=== PATIENT | male | born 1955 | race African-American/Black ===

== ENCOUNTER 2017-02-05 17:59 | Emergency (ER) | payer MEDICAID ==
[~2017-02-05] VITALS: Ht 177.8 cm; Wt 75.0 kg
[2017-02-05] MEDS ORDERED: SODIUM CHLORIDE 0.9% 1,000 ML IV ONE (18:08)
[2017-02-05] MEDS ORDERED: KETOROLAC 30MG/ML VIAL IV STA (18:08)
[2017-02-05] MEDS ORDERED: MORPHINE SULFATE 4 MG/ML CPJ (NOT FOR IM USE) IV STA (18:09)
[2017-02-05] MEDS ORDERED: ONDANSETRON HCL 4MG/2ML VIAL IV STA (18:09)
[2017-02-05 18:33] LABS: BASOPHILS % 1.1 % (0.0-2.0); HEMATOCRIT. 41.8 % (42.0-52.0); HEMOGLOBIN. 13.9 g/dL (14.0-18.0); LYMPHOCYTES % 49.3 % (20.0-50.0); MEAN CORPUSCULAR HGB CONC 33.3 g/dL (31.0-37.0); MEAN CORPUSCULAR VOLUME 93.1 fL (80.0-94.0); MEAN PLATELET VOLUME 7.4 fl (7.4-10.4); MONOCYTES % 12.5 % (2.0-8.0); NEUTROPHILS % 30.1 % (40.0-76.0); PLATELET 218 x1000/uL (130-400); RED BLOOD CELL COUNT 4.49 mill/uL (4.7-6.1); WHITE BLOOD COUNT 6.3 x1000/uL (4.5-11.0)
[2017-02-05 18:40] LABS: CHLORIDE 106 mEq/L (98-107); INDEX HEMOLYSI 1 (1-3); INDEX ICTERIC 1 (1-4); INDEX LIPEMIC 1 (1-3)
[2017-02-05 18:43] LABS: INR 0.9; PARTIAL THROMBOPLASTIN TIME 28.2 sec (24.0-34.0); PROTHROMBIN TIME 9.7 sec
[2017-02-05 18:51] LABS: ANION GAP 12; CALCIUM 8.9 mg/dL (8.5-10.1); CARBON DIOXIDE 24 mEq/L (21-32); NT PRO B-TYPE NATRIURETIC PEP 43 pg/mL (5-125); TROPONIN I < 0.02 ng/mL (0.00-0.04); UREA NITROGEN BLOOD 18 mg/dL (7-21); eGFR 58 mL/min (>60)
[2017-02-05 19:51] LABS: *AMPHETAMINES SCREEN URINE NEGATIVE (NEGATIVE); *BARBITURATES SCREEN URINE NEGATIVE (NEGATIVE); *BENZODIAZEPINES SCREEN URINE NEGATIVE (NEGATIVE); *COCAINE SCREEN URINE PRESUMTIVE POSITIVE (NEGATIVE); CANNABINOID URINE SCREEN PRESUMTIVE POSITIVE (NEGATIVE); ECSTASY MDMA SCREEN URINE NEGATIVE (NEGATIVE); METHADONE URINE SCREEN NEGATIVE (NEGATIVE); OPIATES URINE SCREEN NEGATIVE (NEGATIVE); PHENCYCLIDINE URINE SCREEN NEGATIVE (NEGATIVE)
[2017-02-05 21:40] VITALS: BP 138/80
== END 2017-02-05 22:55 | disposition home or self-care (01) ==
LOC: ER 18:19
DX: R07.89 Other chest pain (principal); I10 Essential (primary) hypertension; F12.10 Cannabis abuse, uncomplicated; D64.9 Anemia, unspecified; F14.10 Cocaine abuse, uncomplicated; Z88.0 Allergy status to penicillin
CPT/HCPCS: 36415; 71010; 80048; 80305; 83880; 84484; 85025; 85610; 85730; 93005; 96361; 96374; 96375; 99285; J1885; J2270; J2405; J7030; Z7610

== ENCOUNTER 2021-09-22 | Inpatient (IN) | payer MEDICARE, OTHER ==
[~2021-09-22] VITALS: Ht 167.6 cm; Wt 71.2 kg
[~2021-09-22] MED LIST: IBUP-2030 PO; PRED10TA PO
[2021-09-22 00:54] LABS: BASOPHILS % 1.2 % (0.0-2.0); EOSINOPHILS % 5.3 % (0.0-5.0); HEMATOCRIT. 35.4 % (42.0-52.0); HEMOGLOBIN. 11.8 g/dL (14.0-18.0); LYMPHOCYTES % 34.7 % (20.0-50.0); MEAN CORPUSCULAR HEMOGLOBIN 31.2 pg (28.0-32.0); MEAN CORPUSCULAR VOLUME 94.2 fL (80.0-94.0); MONOCYTES % 11.7 % (2.0-8.0); NEUTROPHILS % 47.1 % (40.0-76.0); PLATELET 231 x1000/uL (130-400); RED BLOOD CELL COUNT 3.76 mill/uL (4.7-6.1); RED CELL DISTRIBUTION WIDTH 13.2 % (11.6-14.6)
[2021-09-22 01:02] LABS: CHLORIDE 107 mEq/L (98-107)
[2021-09-22] MEDS: NITROGLYCERIN 0.4MG TABLET SL SL PRN ×2 (01:39→02:20)
[2021-09-22] MEDS ORDERED: MAGNESIUM/ALUMINUM HYDROXIDE/SIMETHICONE 30ML UDC PO PRN (09:45)
[2021-09-22] MEDS ORDERED: ACETAMINOPHEN 325MG TABLET PO PRN ×2 (09:45)
[2021-09-22] MEDS ORDERED: IPRATROPIUM/ALBUTEROL 0.5-3(2.5)MG/3ML NEB NEB PRN (09:45)
[2021-09-22] MEDS ORDERED: CLONIDINE 0.1MG TABLET PO PRN (09:45)
[2021-09-22] MEDS ORDERED: TRAMADOL 50MG TABLET PO PRN (09:45)
[2021-09-22] MEDS ORDERED: ONDANSETRON HCL 4MG/2ML INJ IV PRN (09:45)
[2021-09-22] MEDS ORDERED: NITROGLYCERIN 0.4MG TABLET SL SL PRN (09:45)
[2021-09-22] MEDS ORDERED: DOCUSATE SODIUM 100MG CAPSULE PO PRN (09:45)
[2021-09-22] MEDS ORDERED: KETOROLAC 15MG/ML VIAL IV PRN (09:45)
[2021-09-22] MEDS ORDERED: GUAIFENESIN 200MG/10ML SUGAR FREE UDC PO PRN (09:45)
[2021-09-22] MEDS ORDERED: NALOXONE HCL 0.4MG/ML VIAL IV PRN (10:00)
[2021-09-22 10:18] LABS: FOLIC ACID (FOLATE) SERUM 13.2 ng/mL (>5.38)
[2021-09-22 12:00] VITALS: BP 160/87
[2021-09-22] MEDS: ENOXAPARIN 40MG/0.4ML SYR SUBCUT SCH (12:02)
[2021-09-22] MEDS: AMLODIPINE 10MG TABLET PO SCH (15:52)
[2021-09-22 16:00] VITALS: BP 132/94
[2021-09-22 17:29] LABS: ETHANOL BLOOD < 10 mg/dL
[2021-09-22 17:31] LABS: TOTAL IRON BINDING CAPACITY 381 ug/dL (250-450)
[2021-09-22 17:34] LABS: CREATINE KINASE 228 IU/L (39-308)
[2021-09-22 17:37] LABS: CREATINE KINASE MB FRACTION 1.9 ng/mL (0.5-3.6)
[2021-09-22 18:00] VITALS: BP 132/94
[2021-09-22 20:00] VITALS: BP 122/88
[2021-09-22] MEDS ORDERED: ZOLPIDEM TARTRATE 5MG TABLET PO PRN (21:00)
[2021-09-22] MEDS: FAMOTIDINE 20MG TABLET PO SCH (21:15)
[2021-09-23] VITALS: BP 110/88
[2021-09-23 01:27] LABS: CREATINE KINASE 167 IU/L (39-308)
[2021-09-23 01:28] LABS: CREATINE KINASE MB FRACTION 1.3 ng/mL (0.5-3.6)
[2021-09-23 04:00] VITALS: BP 126/86
[2021-09-23 07:19] LABS: BASOPHILS % 0.8 % (0.0-2.0); EOSINOPHILS % 8.6 % (0.0-5.0); HEMATOCRIT. 41.7 % (42.0-52.0); HEMOGLOBIN. 13.5 g/dL (14.0-18.0); LYMPHOCYTES % 39.2 % (20.0-50.0); MEAN CORPUSCULAR HEMOGLOBIN 30.6 pg (28.0-32.0); MEAN CORPUSCULAR VOLUME 94.8 fL (80.0-94.0); MEAN PLATELET VOLUME 8.6 fl (7.4-10.4); MONOCYTES % 10.8 % (2.0-8.0); NEUTROPHILS % 40.6 % (40.0-76.0); PLATELET 259 x1000/uL (130-400); RED CELL DISTRIBUTION WIDTH 12.8 % (11.6-14.6)
[2021-09-23 07:20] LABS: CHLORIDE 107 mEq/L (98-107)
[2021-09-23 07:28] LABS: PHOSPHORUS 2.4 mg/dL (2.5-4.9)
[2021-09-23 08:00] VITALS: BP 118/79
[2021-09-23] MEDS: ASPIRIN 325MG EC TABLET PO SCH (08:57)
[2021-09-23] MEDS: AMLODIPINE 10MG TABLET PO SCH (08:59)
[2021-09-23] MEDS: ENOXAPARIN 40MG/0.4ML SYR SUBCUT SCH (09:01)
[2021-09-23 12:00] VITALS: BP 115/78
[2021-09-23 16:00] VITALS: BP 127/78
[2021-09-23 20:00] VITALS: BP 141/89
[2021-09-23] MEDS: FAMOTIDINE 20MG TABLET PO SCH (20:58)
[2021-09-24] VITALS: BP 138/81
[2021-09-24 04:00] VITALS: BP 119/79
[2021-09-24 06:52] LABS: BASOPHILS % 0.6 % (0.0-2.0); EOSINOPHILS % 8.3 % (0.0-5.0); HEMATOCRIT. 41.8 % (42.0-52.0); HEMOGLOBIN. 13.8 g/dL (14.0-18.0); LYMPHOCYTES % 41.9 % (20.0-50.0); MEAN CORPUSCULAR HEMOGLOBIN 31.2 pg (28.0-32.0); MEAN CORPUSCULAR VOLUME 94.2 fL (80.0-94.0); MEAN PLATELET VOLUME 8.6 fl (7.4-10.4); MONOCYTES % 11.7 % (2.0-8.0); NEUTROPHILS % 37.5 % (40.0-76.0); PLATELET 258 x1000/uL (130-400); RED BLOOD CELL COUNT 4.43 mill/uL (4.7-6.1); RED CELL DISTRIBUTION WIDTH 12.8 % (11.6-14.6)
[2021-09-24 08:00] VITALS: BP 146/105
[2021-09-24] MEDS: ENOXAPARIN 40MG/0.4ML SYR SUBCUT SCH (09:12)
[2021-09-24] MEDS: ASPIRIN 325MG EC TABLET PO SCH (09:14)
[2021-09-24] MEDS: AMLODIPINE 10MG TABLET PO SCH (09:15)
[2021-09-24 10:56] VITALS: BP 146/105
== END 2021-09-24 12:08 | disposition home or self-care (01) | DRG 203 ==
LOC: EDBD → ER → 8WST 03:30 → EDBD 03:30 → CANRESERV 07:35 → ENRESERV 07:35
PROVIDERS: ADMIT Internal Medicine; ATTEND Internal Medicine
DX: M94.0 Chondrocostal junction syndrome [Tietze] (principal); N17.0 Acute kidney failure with tubular necrosis; E44.1 Mild protein-calorie malnutrition; I25.10 Atherosclerotic heart disease of native coronary artery without angina pectoris; C34.90 Malignant neoplasm of unspecified part of unspecified bronchus or lung; E78.5 Hyperlipidemia, unspecified; F12.10 Cannabis abuse, uncomplicated; F14.10 Cocaine abuse, uncomplicated; I10 Essential (primary) hypertension; F17.210 Nicotine dependence, cigarettes, uncomplicated; F16.10 Hallucinogen abuse, uncomplicated; Z79.899 Other long term (current) drug therapy; Z85.118 Personal history of other malignant neoplasm of bronchus and lung; Z88.0 Allergy status to penicillin; Z79.1 Long term (current) use of non-steroidal anti-inflammatories (NSAID); Z68.25 Body mass index [BMI] 25.0-25.9, adult
CPT/HCPCS: 36415; 71045; 80048; 80053; 80320; 82550; 82553; 82607; 82746; 83540; 83550; 83735; 83880; 84100; 84484; 85025; 93005; 93970; 99285; J1650; G0480